=== PATIENT | male | born 1955 | race Two or more races ===

== ENCOUNTER 2024-03-07 18:28 | Inpatient (IN) | payer OTHER ==
[~2024-03-07] VITALS: Ht 175.3 cm; Wt 73.9 kg
[2024-03-07 19:14] LABS: EOSINOPHILS % (AUTO) 0.2 % (0.0-6.0); HEMATOCRIT 33 % (39-51); HEMOGLOBIN 11.1 g/dL (13.5-17.5); LYMPHOCYTES # (AUTO) 0.2 K/uL (0.8-4.8); LYMPHOCYTES % (AUTO) 2.5 % (20.0-44.0); MEAN CORPUSCULAR HEMOGLOBIN 33 PG (26.0-33.0); MEAN CORPUSCULAR HGB CONC 34 g/dl (31.0-36.0); MEAN CORPUSCULAR VOLUME 99 fL (80-96); MONOCYTES # (AUTO) 0.5 K/uL (0.1-1.30); MONOCYTES % (AUTO) 5.5 % (2.0-12.0); NEUTROPHILS # (AUTO) 8.7 K/uL (1.8-8.9); NEUTROPHILS % (AUTO) 91.8 % (43.0-81.0); PLATELET COUNT (AUTO) 137 K/uL (150-450); RED BLOOD CELL COUNT(AUTO) 3.35 MIL/uL (4.5-6.0); RED CELL DISTRIBUTION WIDTH 20.5 % (11.5-15.0); WHITE BLOOD COUNT (AUTO) 9.5 K/uL (4.3-11.0)
[2024-03-07 19:23] LABS: CALCIUM, SERUM 8.9 mg/dL (8.5-10.1); CARBON DIOXIDE 29 mmol/L (21-32); CHLORIDE 102 mmol/L (98-107); CREATININE 2.1 mg/dL (0.6-1.3); GLUCOSE 105 mg/dL (74-106); POTASSIUM 4.2 mmol/L (3.5-5.1); SODIUM SERUM 140 mmol/L (136-145); UREA NITROGEN, BLOOD 40 mg/dL (7-18)
[2024-03-07 19:29] LABS: ALANINE AMINOTRANSFERASE 41 U/L (12-78); ALBUMIN 2.6 g/dL (3.4-5.0); ALKALINE PHOSPHATASE 288 U/L (46-116); ASPARTATE AMINOTRANSFERASE 23 U/L (15-37); BILIRUBIN,DIRECT 0.4 mg/dL (0.0-0.2); TOTAL PROTEIN, SERUM 6.7 g/dL (6.4-8.2)
[2024-03-07 19:31] LABS: INR 1.23 (0.91-1.10); PARTIAL THROMBOPLASTIN TIME 38.7 SEC (24.3-34.3); PROTHROMBIN TIME 12.9 SECS (9.2-11.1)
[2024-03-07 20:19] LABS: APPEARANCE,URINE CLEAR (CLEAR); BILIRUBIN,URINE NEGATIVE (NEGATIVE); BLOOD, URINE 2+ Ery/uL (NEGATIVE); COLOR,URINE YELLOW (YELLOW); KETONES,URINE NEGATIVE (NEGATIVE); LEUKOCYTE ESTERASE ,URINE 3+ (NEGATIVE); NITRITE, URINE NEGATIVE (NEGATIVE); PROTEIN,URINE 3+ mg/dl (NEGATIVE); UGLUCOSE NEGATIVE (NEGATIVE); UROBILINOGEN,URINE 0.2 EU/dL (0.2)
[2024-03-07 20:21] LABS: ADD URINE CULTURE YES; BACTERIA,URINE 1+ /HPF (None Seen); SQUAMOUS EPITHELIAL CELL,UR Rare /HPF (None Seen); URINE AMORPHOUS PHOSPHATES Few /HPF (None Seen)
[2024-03-07] MEDS: PIPERACILLIN /TAZOBACTAM 3.375 G in IV D5W 50 ML IV ONE (21:00)
[2024-03-07] MEDS ORDERED: PIPERACI/TAZO 3.375GM/D5W 50ML PB IV ONE (21:02)
[2024-03-08] MEDS ORDERED: ACETAMINOPHEN 325 MG TABLET PO PRN
[2024-03-08] MEDS ORDERED: MAGNESIUM HYDROXIDE 30 ML UDC PO PRN
[2024-03-08] MEDS ORDERED: INSULIN REGULAR, HUMAN 100 UNIT/ML 3 ML VIAL SQ PRN
[2024-03-08] MEDS ORDERED: Z GUARD REMEDY 4 OZ OINT TP PRN
[2024-03-08] MEDS ORDERED: MAG HYDROX/AL HYDROX/SIMETH 30 ML UDC PO PRN
[2024-03-08] MEDS ORDERED: ONDANSETRON HCL/PF 4 MG/2 ML VIAL IVP PRN
[2024-03-08] MEDS ORDERED: DEXTROSE 50%-WATER 50 ML DISP.SYRIN ONE (00:52)
[2024-03-08] MEDS: BLOOD SUGAR DIAGNOSTIC 1 EACH STRIP IN SCH (00:53)
[2024-03-08] MEDS: DEXTROSE 50%-WATER 50 ML DISP.SYRIN IV PRN (00:53)
[2024-03-08] MEDS ORDERED: CEFEPIME 1 GM VIAL ONE (01:07)
[2024-03-08] MEDS: CEFEPIME 2 GM in IV D5W 100 ML IV ONE (01:21)
[2024-03-08] MEDS: Sodium Chloride 77 MEQ in IV 10% DEXTROSE 1,000 ML IV SCH (02:15)
[2024-03-08] MEDS ORDERED: DEXTROSE 10% IN WATER 250 ML BAG IV SCH (02:30)
[2024-03-08] MEDS: PIPERACILLIN /TAZOBACTAM 3.375 G in IV D5W 50 ML IV ONE (03:00)
[2024-03-08] MEDS ORDERED: PIPERACI/TAZO 3.375GM/D5W 50ML PB IV ONE (03:10)
[2024-03-08] MEDS ORDERED: PIPERACILLIN /TAZOBACTAM 3.375 G in IV D5W 50 ML IV SCH (05:00)
[2024-03-08] MEDS: PIPERACILLIN /TAZOBACTAM 3.375 G in IV D5W 50 ML IV SCH (05:00)
[2024-03-08] MEDS ORDERED: Sodium Chloride 77 MEQ in IV 10% DEXTROSE 1,000 ML IV SCH (07:30)
[2024-03-08 08:24] LABS: BASOPHILS % (AUTO) 0.1 % (0.0-2.0); EOSINOPHILS # (AUTO) 0.1 K/uL (0.0-0.7); EOSINOPHILS % (AUTO) 0.5 % (0.0-6.0); HEMATOCRIT 29 % (39-51); HEMOGLOBIN 9.7 g/dL (13.5-17.5); LYMPHOCYTES # (AUTO) 0.8 K/uL (0.8-4.8); LYMPHOCYTES % (AUTO) 7.7 % (20.0-44.0); MEAN CORPUSCULAR HEMOGLOBIN 33 PG (26.0-33.0); MEAN CORPUSCULAR HGB CONC 33 g/dl (31.0-36.0); MEAN CORPUSCULAR VOLUME 100 fL (80-96); MONOCYTES # (AUTO) 0.7 K/uL (0.1-1.30); MONOCYTES % (AUTO) 6.9 % (2.0-12.0); NEUTROPHILS % (AUTO) 84.8 % (43.0-81.0); PLATELET COUNT (AUTO) 135 K/uL (150-450); RED BLOOD CELL COUNT(AUTO) 2.95 MIL/uL (4.5-6.0); RED CELL DISTRIBUTION WIDTH 20.5 % (11.5-15.0); WHITE BLOOD COUNT (AUTO) 10.6 K/uL (4.3-11.0)
[2024-03-08 08:42] LABS: CALCIUM, SERUM 8.2 mg/dL (8.5-10.1); CREATININE 2.5 mg/dL (0.6-1.3); MAGNESIUM 1.8 mg/dL (1.8-2.4); PHOSPHORUS 2.3 mg/dL (2.5-4.9); POTASSIUM 4.5 mmol/L (3.5-5.1)
[2024-03-08] MEDS ORDERED: INSU100V39 SQ (08:45)
[2024-03-08] MEDS ORDERED: METO10TA3 GT (08:45)
[2024-03-08] MEDS ORDERED: NUTR100037 GT (08:45)
[2024-03-08] MEDS ORDERED: INSU100V7 SQ ×2 (08:45)
[2024-03-08] MEDS ORDERED: LABE200T5 GT (08:45)
[2024-03-08] MEDS ORDERED: CLON0.2T GT (08:45)
[2024-03-08] MEDS ORDERED: FOLI0.8T23 GT (08:45)
[2024-03-08] MEDS ORDERED: MIDO10TA GT (08:45)
[2024-03-08] MEDS ORDERED: BACL5TAB GT (08:45)
[2024-03-08] MEDS ORDERED: ONDA-97 GT (08:45)
[2024-03-08] MEDS ORDERED: CAPT25TA3 GT (08:45)
[2024-03-08] MEDS ORDERED: AMAN50SY GT (08:45)
[2024-03-08] MEDS ORDERED: PETR113O TP (08:45)
[2024-03-08] MEDS ORDERED: CHOL200059 GT (08:45)
[2024-03-08] MEDS ORDERED: HEPA500039 SQ (08:45)
[2024-03-08] MEDS ORDERED: BLOO-668 IN (08:45)
[2024-03-08] MEDS ORDERED: SIME80TA15 GT (08:45)
[2024-03-08] MEDS ORDERED: L. A1TAB10 GT (08:45)
[2024-03-08] MEDS ORDERED: BISA10SU11 RC (08:45)
[2024-03-08] MEDS ORDERED: POLY15DR17 EACHEYE (08:45)
[2024-03-08] MEDS ORDERED: ACET-2070 GT (08:45)
[2024-03-08] MEDS ORDERED: ZINC56.713 TP (08:45)
[2024-03-08] MEDS: PANTOPRAZOLE 40 MG VIAL IV SCH (09:00)
[2024-03-08] MEDS: THERAHONEY GEL 1.5 OZ TUBE TP SCH (10:30)
[2024-03-08] MEDS ORDERED: PANTOPRAZOLE 40 MG VIAL ONE (11:13)
[2024-03-08] MEDS: CEFEPIME 2 GM in IV D5W 100 ML IV SCH (13:54)
[2024-03-08 15:30] VITALS: O2SAT 98
[2024-03-08 15:47] VITALS: BP 138/52; TEMP 99; O2SAT 97
[2024-03-08 16:00] VITALS: BP 138/52; TEMP 99; O2SAT 97
[2024-03-08] MEDS: IV 10% DEXTROSE 1,000 ML IV PRN (17:55)
[2024-03-08 19:58] VITALS: O2SAT 97
[2024-03-08 20:00] VITALS: BP 163/74; TEMP 98.5; O2SAT 100
[2024-03-08 23:26] VITALS: O2SAT 99
[2024-03-09] VITALS (9 sets, daily range): BP systolic 114–187; BP diastolic 55–65; TEMP 97.9–99; O2SAT 97–100
[2024-03-09 07:42] LABS: CALCIUM, SERUM 8.8 mg/dL (8.5-10.1); CREATININE 2.2 mg/dL (0.6-1.3); MAGNESIUM 1.8 mg/dL (1.8-2.4); PHOSPHORUS 3.2 mg/dL (2.5-4.9)
[2024-03-09 08:04] LABS: BASOPHILS % (AUTO) 0.3 % (0.0-2.0); EOSINOPHILS % (AUTO) 0.6 % (0.0-6.0); HEMATOCRIT 30 % (39-51); HEMOGLOBIN 10.3 g/dL (13.5-17.5); LYMPHOCYTES # (AUTO) 0.7 K/uL (0.8-4.8); LYMPHOCYTES % (AUTO) 11.1 % (20.0-44.0); MEAN CORPUSCULAR HEMOGLOBIN 36 PG (26.0-33.0); MEAN CORPUSCULAR HGB CONC 35 g/dl (31.0-36.0); MEAN CORPUSCULAR VOLUME 103 fL (80-96); MONOCYTES # (AUTO) 0.5 K/uL (0.1-1.30); MONOCYTES % (AUTO) 8.9 % (2.0-12.0); NEUTROPHILS # (AUTO) 4.8 K/uL (1.8-8.9); NEUTROPHILS % (AUTO) 79.1 % (43.0-81.0); PLATELET COUNT (AUTO) 139 K/uL (150-450); RED BLOOD CELL COUNT(AUTO) 2.89 MIL/uL (4.5-6.0); RED CELL DISTRIBUTION WIDTH 20.1 % (11.5-15.0)
[2024-03-09] MEDS ORDERED: SULF1TAB48 GT (10:59)
[2024-03-09] MEDS ORDERED: METOCLOPRAMIDE HCL 10 MG TABLET GT PRN (11:00)
[2024-03-09] MEDS ORDERED: BISACODYL SUPP (10 MG) 10 MG/SUPP.RECT SUPP.RECT RC PRN (11:00)
[2024-03-09] MEDS ORDERED: MIDODRINE HCL (5MG) 5 MG TABLET GT PRN (11:30)
[2024-03-09] MEDS ORDERED: CLONIDINE HCL 0.1 MG TABLET GT PRN (11:30)
[2024-03-09] MEDS ORDERED: ACETAMINOPHEN 650 MG/20.3 ML UDC GT PRN (11:30)
[2024-03-09] MEDS ORDERED: ONDANSETRON 4 MG TAB.RAPDIS GT PRN (11:30)
[2024-03-09] MEDS: SIMETHICONE 80 MG TAB.CHEW GT SCH (13:03)
[2024-03-09] MEDS: LABETALOL HCL (100MG) 100 MG TABLET GT SCH (13:03)
[2024-03-09] MEDS ORDERED: CHOLECALCIFEROL 1,000 UNIT TABLET (VIT D3) GT SCH (17:00)
[2024-03-09] MEDS ORDERED: LISINOPRIL (10MG) 10 MG TABLET GT SCH (17:00)
[2024-03-09] MEDS ORDERED: ZINC OXIDE 56.7 GM TUBE TP SCH (21:00)
[2024-03-09] MEDS ORDERED: BLOOD SUGAR DIAGNOSTIC 1 EACH STRIP IN SCH (21:00)
[2024-03-09] MEDS ORDERED: HEPARIN SODIUM, PORCINE 5000 UNITS/1 ML VIAL SQ SCH (21:00)
[2024-03-09] MEDS ORDERED: BACLOFEN (10 MG) 10 MG TABLET GT SCH (21:00)
[2024-03-10 07:06] LABS: HEPATITIS B SURFACE AB Non Reactive (.)
[2024-03-10] MEDS ORDERED: ACIDOPHILUS/BULGARICUS 1 EACH TAB.CHEW GT SCH (09:00)
[2024-03-10] MEDS ORDERED: VIT B CMPLX 3/FA/VIT C/BIOTIN 1 TAB TABLET GT SCH (09:00)
== END 2024-03-09 18:59 | DRG 469 ==
LOC: ER 18:31 → TRANSITION 03-08 02:15 → TELE1 03-08 14:11
PROVIDERS: ATTEND Internal Medicine
PROC: 5A1935Z Respiratory Ventilation, Less than 24 Consecutive Hours (ICD-10-PCS; principal; 2024-03-08)
PROC: 5A1D70Z Performance of Urinary Filtration, Intermittent, Less than 6 Hours Per Day (ICD-10-PCS; 2024-03-08)
DX: N17.9 Acute kidney failure, unspecified (principal); G93.41 Metabolic encephalopathy; E11.649 Type 2 diabetes mellitus with hypoglycemia without coma; D69.6 Thrombocytopenia, unspecified; J90 Pleural effusion, not elsewhere classified; J96.10 Chronic respiratory failure, unspecified whether with hypoxia or hypercapnia; N18.6 End stage renal disease; E11.22 Type 2 diabetes mellitus with diabetic chronic kidney disease; N39.0 Urinary tract infection, site not specified; Z86.73 Personal history of transient ischemic attack (TIA), and cerebral infarction without residual deficits; Z93.1 Gastrostomy status; Z99.2 Dependence on renal dialysis; R13.10 Dysphagia, unspecified; B96.89 Other specified bacterial agents as the cause of diseases classified elsewhere; D50.9 Iron deficiency anemia, unspecified; Z98.890 Other specified postprocedural states; Z79.4 Long term (current) use of insulin; Z79.899 Other long term (current) drug therapy; Z79.01 Long term (current) use of anticoagulants; D53.9 Nutritional anemia, unspecified; M89.8X9 Other specified disorders of bone, unspecified site; N40.0 Benign prostatic hyperplasia without lower urinary tract symptoms
CPT/HCPCS: 31720; 36415; 70450-TC; 71045-TC; 80048-TC; 80076-TC; 81001; 82607-TC; 82962-TC; 83605-TC; 83735-TC; 84100-TC; 84443-TC; 85025-TC; 85730-TC; 86706; 87040-TC; 87340; 90935-TC; 94640-TC; 94799-TC; 97110-TC; A4223; G0378; J0692; J1815; J2470; J2543; J3490; J7030; J7060